=== PATIENT | female | born 1950 | race Caucasian/White ===

== ENCOUNTER 2021-02-17 14:57 | Emergency (ER) | payer OTHER, SELFPAY ==
[2021-02-17 15:14] VITALS: BP 129/89; PULSE 71; RESP 15; TEMP 36.3; O2SAT 97; BMI 29.7
--- NOTE | 2021-02-17 15:20 | DI.RAD.S_ITS ---
PROCEDURE: XR WRIST LT MIN 3V INDICATIONS: left wrist injury TECHNIQUE: 4 views of the wrist were acquired. COMPARISON: None. FINDINGS: Bones: No fractures or dislocations. No suspicious bony lesions. Radiocarpal joint osteoarthritis. Scaphoid view: Scaphoid is intact. Soft tissues: Chondrocalcinosis. IMPRESSION: No fracture. No acute osseous lesion. If symptoms and/or clinical suspicion for pathology persists, further assessment with repeat radiographs (7-10 days) or advanced imaging (e.g. CT, MRI or bone scan) should be considered. Dictated by: Demetrice Dan MD, PhD on 02/17/2021 at 16:02 Approved by: Demetrice Dan MD, PhD on 02/17/2021 at 16:03
--- NOTE | 2021-02-17 17:08 | ED.GENADULT ---
HPI - General Adult General Chief complaint: Extremity Injury, Upper Stated complaint: left hand & wrist injury Time Seen by Provider: 02/17/21 16:59 Source: patient Mode of arrival: Ambulatory Limitations: no limitations History of Present Illness HPI narrative: Patient is here for evaluation of a left wrist injury. She states that she was out hiking in coming to the bottom of a fairly steep hill where she slipped and fell over and hit her hand on a object. She reports no other injuries from the event. It took some Tylenol prior to arrival in she now states that her pain is improved. Related Data Allergies Allergy/AdvReac Type Severity Reaction Status Date / Time No Known Drug Allergies Allergy Verified 02/17/21 15:16 Review of Systems Constitutional Constitutional: Reports system reviewed and no additional complaints, except as documented Musculoskeletal Musculoskeletal: Denies tingling Comments: Left wrist pain Integumentary/Breasts Skin/Breast: Reports system reviewed and no additional complaints, except as documented Neurologic Neurologic: Denies tingling Hematologic/Lymphatic Hematologic/Lymphatic: Reports system reviewed and no additional complaints, except as documented Allergic/Immunologic Allergic/Immunologic: Reports system reviewed and no additional complaints, except as documented Patient History Medical History Healthy adult Social History Smoking Status: Unknown if ever smoked Smoking Status: Unknown if ever smoked alcohol intake frequency: 3 or more drinks per day Alcohol type: wine Substance Use Type: does not use Exam Initial Vital Signs Initial Vital Signs: Vital Signs Temperature 97.3 F L 02/17/21 15:14 Pulse Rate 71 02/17/21 15:14 Respiratory Rate 15 02/17/21 15:14 Blood Pressure 129/89 02/17/21 15:14 Pulse Oximetry 97 02/17/21 15:14 Const General: cooperative, healthy appearing and comfortable Cardio Pulses: radial pulses present on the left Skin Lesions: no lesions Rashes: no rashes Neuro General: patient alert and patient awake Sensory Exam: no sensory deficits noted Extrem General: capillary refill normal Other: Patient has no left shoulder and left elbow tenderness. Has tenderness along the distal radius. No tenderness along the snuffbox. No tenderness with axial loading of the thumb. Psych Appearance: grossly normal and well kempt Procedures Orthopedic Splinting/Casting Injury #1: Side: left Upper Extremity Injury Location: wrist Lower Extremity Immobilizer: Sabas wrap Post splinting neuro exam: intact Post splinting vascular exam: intact Placed by: Provider Scores [facility] [place] coma scale eye opening: Spontaneous Bharath coma scale verbal response: Orientated Bharath coma scale motor response: Obey commands Bharath coma scale total score: 15 Course Orders Ordered: ED Orders 02/17/21 15:20 XR wrist LT min 3V Stat Vital Signs Vital signs: Vital Signs - 8 hr 02/17/21 15:14 Temperature 97.3 F L Pulse Rate 71 Respiratory Rate 15 Blood Pressure 129/89 Pulse Oximetry 97 Medical Decision Making Imaging Data Extremity x-ray #1: Radiologist's Impression: [address] [id number] ReportSigned Patient: Allison Waller SMR#: [id number]: [id number]:[id number]/Sex: 70 / FDate of Service: 02/17/21Loc: EDAccession Number: [id number] Procedure: XR wrist LT min 3V Ordering Provider: John Paige D.O. PROCEDURE: XR WRIST LT MIN 3V INDICATIONS: left wrist injury TECHNIQUE: 4 views of the wrist were acquired. COMPARISON: None. FINDINGS: Bones: No fractures or dislocations. No suspicious bony lesions. Radiocarpal joint osteoarthritis. Scaphoid view: Scaphoid is intact. Soft tissues: Chondrocalcinosis. IMPRESSION: No fracture. No acute osseous lesion. If symptoms and/or clinical suspicion for pathology persists, further assessment with repeat radiographs (7-10 days) or advanced imaging (e.g. CT, MRI or bone scan) should be considered. Dictated by: Demetrice Dan MD, PhD on 02/17/2021 at 16:02 Approved by: Demetrice Dan MD, PhD on 02/17/2021 at 16:03 [facility] Narrative Medical decision making narrative: Neurovascularly intact. No fractures noted on the x-ray. Sabas bandage placed for comfort. She was given return precautions. She expressed understanding agreement. Discharge Plan Departure Patient Disposition: Home Clinical Impression: Left wrist sprain Instructions: DI for Wrist Sprain, How To Perform RICE (Rest, Ice, Compress, Elevate), How to Apply an Elastic Wrap on Wrist Activity Restrictions/Additional Instructions: There were no fractures noted on the x-rays. Use the Sabas bandage like we discussed. Keep your wrist iced like we discussed. Return to the emergency department for any new or worsening symptoms
--- NOTE | 2021-02-17 17:10 | PC.NURSE ---
cinthia wrap applied by md to left wrist cms intact, pt tolerated procedure well
[2021-02-17 17:12] VITALS: BP 138/64; PULSE 64; RESP 16; O2SAT 98
== END 2021-02-17 17:15 | disposition home or self-care (01) ==
PROVIDERS: Emergency Provider Emergency Medicine
DX: S63.502A Unspecified sprain of left wrist, initial encounter (principal); W19.XXXA Unspecified fall, initial encounter
CPT/HCPCS: 73110; 99281; 99283